=== PATIENT | female | born 1970 | race Hispanic/Latino ===

== ENCOUNTER 2022-07-25 11:05 | Emergency (ER) | payer BC ==
[~2022-07-25] VITALS: Ht 152.4 cm; Wt 53.1 kg
[2022-07-25] MEDS ORDERED: HYDROXYZINE HCL10 MG PO (11:52)
[2022-07-25] MEDS ORDERED: ZYRTEC10 M3 PO (11:52)
[2022-07-25] MEDS ORDERED: PEPCID20 MG PO (11:52)
[2022-07-25] MEDS ORDERED: CETIRIZINE HCL10 MG PO (11:54)
== END 2022-07-25 12:00 | disposition home or self-care (01) ==
LOC: ER 11:09
DX: L50.9 Urticaria, unspecified (principal)
CPT/HCPCS: 99282